=== PATIENT | female | born 1940 | race Caucasian/White ===

== ENCOUNTER 2016-09-28 13:01 | Observation (INO) | payer MEDICARE, OTHER ==
[~2016-09-28] VITALS: Ht 162.6 cm; Wt 66.9 kg
[2016-09-28] VITALS (10 sets, daily range): BP systolic 104–131; BP diastolic 52–67; PULSE 71–89; RESP 16–20; TEMP 97.7–98.7; O2SAT 96–98
[~2016-09-28 13:01] MED LIST: ASPI81TA82 PO; LACTCAP7 PO; METF500 PO; NEXI20CA PO; OCUTTAB PO; PRAV20TA67 PO
[2016-09-28] MEDS ORDERED: PRAD150C PO (14:30)
[2016-09-28] MEDS ORDERED: NEXI20CA PO (14:31)
[2016-09-28] MEDS ORDERED: PRAV10TA PO (14:31)
[2016-09-28] MEDS ORDERED: VITA100021 SL (14:33)
[2016-09-28] MEDS ORDERED: VITA400C2 PO (14:33)
[2016-09-28] MEDS ORDERED: LEVO.075 PO (14:33)
[2016-09-28] MEDS ORDERED: OCUVTAB PO (14:33)
--- NOTE | 2016-09-28 15:11 | PD ---
HPI Chief Complaint: Abdominal Pain Time Seen by Provider: 15:06 Travel History International Travel<30 days: No Contact w/Intl Traveler<30days: No Traveled to known affect area: No History of Present Illness HPI This patient complains of chest pain. Duration is 20 hours. Symptoms severity is moderate. Symptoms are nonexertional. They're not worsened with eating. Located in the low center sternum. She does have some belching sensation. She does have history of heartburn. She called the office of her stock parts inspector and she was advised to come here and get evaluated. She has no recent stress testing. She has history of A. fib and had ablation and takes Pradaxa. No alleviating factors. PFSH Past Medical History Atrial Fibrillation: Yes Cancer: No Cardiovascular Problems: Yes (Heart Ablation) High Cholesterol: Yes Chemotherapy: No Chest Pain: No Cerebrovascular Accident: No Diabetes: Yes (Type II) Patient Takes Glucophage: No Diminished Hearing: Yes Endocrine: No Gastrointestinal Disorders: Yes GERD: Yes Glaucoma: No Genitourinary: Yes (BLOCKAGE IN [place] (UNSURE WHERE)) Hepatitis: No Hiatal Hernia: No Hypertension: Yes Immune Disorder: No Kidney Stones: Yes Medical other: Yes (FATTY LIVER) Musculoskeletal: No Neurologic: No Psychiatric: No Respiratory: No Integumentary: No Immunizations Current: Yes (SHINGLES DONE) Thyroid Disease: Yes Tetanus Vaccination: < 5 Years Influenza Vaccination: Yes ?: Not Menopausal: Yes Past Surgical History Abdominal Surgery: Yes (RECTAL SURGERY) AICD: No Cardiac Surgery: Yes (HEART ABLATION) Cholecystectomy: Yes Ear Surgery: No Endocrine Surgery: No Eye Surgery: No Genitourinary Surgery: No Gynecologic Surgery: Yes (HYSTERECTOMY) Hysterectomy: Yes Joint Replacement: No Oral Surgery: No Pacemaker: No Thoracic Surgery: No Other Surgery: Yes (BREAST AUGMENTATION) Social History Alcohol Use: No Tobacco Use: No Substance Use: No Allergies-Medications (Allergen,Severity, Reaction): Coded Allergies: Codeine (Verified Allergy, Severe, Vertigo, 09/28/16) Sulfa (Verified Allergy, Severe, Vertigo, 09/28/16) Reported Meds & Prescriptions Reported Meds & Active Scripts Active Reported Ocuvite (Multiple Vitamins W/ Minerals) 1 Tab 1 Tab PO DAILY Vitamin B-12 (Cyanocobalamin) 1,000 Mcg Subl 1,000 Mcg SL DAILY Vitamin E 400 Unit Cap 400 Units PO DAILY Synthroid (Levothyroxine Sodium) 75 Mcg Tab 75 Mcg PO DAILY Pravastatin 10 Mg Tab 10 Mg PO DAILY Nexium (Esomeprazole DR) 20 Mg Capdr 20 Mg PO DAILY Pradaxa (Dabigatran) 150 Mg Cap 150 Mg PO BID Review of Systems General / Constitutional: No: Fever Eyes: No: Visual changes HENT: No: Headaches Cardiovascular: Positive: Chest Pain or Discomfort Respiratory: No: Shortness of Breath Gastrointestinal: No: Abdominal Pain Genitourinary: No: Dysuria Musculoskeletal: No: Pain Skin: No Rash Neurologic: No: Weakness Psychiatric: No: Depression Endocrine: No: Polydipsia Hematologic/Lymphatic: No: Easy Bruising Physical Exam Narrative GENERAL: Well-nourished, well-developed patient in no apparent distress. SKIN: Warm and dry. HEAD: Atraumatic. Normocephalic. EYES: Pupils equal and round. No scleral icterus. No injection or drainage. ENT: No nasal bleeding or discharge. Mucous membranes pink and moist. NECK: Trachea midline. No JVD. CARDIOVASCULAR: Regular rate and rhythm. No murmur appreciated. RESPIRATORY: No accessory muscle use. Clear to auscultation. Breath sounds equal bilaterally. GASTROINTESTINAL: Abdomen soft, non-tender, nondistended. Hepatic and splenic margins not palpable. MUSCULOSKELETAL: No obvious deformities. No clubbing. No cyanosis. No edema. NEUROLOGICAL: Awake and alert. No obvious cranial nerve deficits. Motor grossly within normal limits. Normal speech. PSYCHIATRIC: Appropriate mood and affect; insight and judgment normal. Data Data Last Documented VS Vital Signs Date Time Temp Pulse Resp B/P Pulse Ox O2 Delivery O2 Flow Rate FiO2 09/28/16 16:50 71 18 131/59 98 Room Air 09/28/16 13:15 97.7 Orders Electrocardiogram (09/28/16 13:20) Ckmb (Isoenzyme) Profile (09/28/16 15:06) Complete Blood Count With Diff (09/28/16 15:06) Comprehensive Metabolic Panel (09/28/16 15:06) Prothrombin Time / Inr (Pt) (09/28/16 15:06) Act Partial Throm Time (Ptt) (09/28/16 15:06) Troponin I (09/28/16 15:06) Lipase (09/28/16 15:06) Chest, Single Ap (09/28/16 15:06) Ecg Monitoring (09/28/16 15:06) Iv Access Insert/Monitor (09/28/16 15:06) Oximetry (09/28/16 15:06) Sodium Chloride 0.9% Flush (Ns Flush) (09/28/16 15:15) Admit Order (Ed Use Only) (09/28/16 16:52) Labs Laboratory Tests Test 09/28/16 09/28/16 15:35 16:15 White Blood Count 12.3 TH/MM3 Red Blood Count 4.49 MIL/MM3 Hemoglobin 14.1 GM/DL Hematocrit 42.8 % Mean Corpuscular Volume 95.1 FL Mean Corpuscular Hemoglobin 31.3 PG Mean Corpuscular Hemoglobin 32.9 % Concent Red Cell Distribution Width 12.6 % Platelet Count 233 TH/MM3 Mean Platelet Volume 9.1 FL Neutrophils (%) (Auto) 58.8 % Lymphocytes (%) (Auto) 27.5 % Monocytes (%) (Auto) 9.3 % Eosinophils (%) (Auto) 2.0 % Basophils (%) (Auto) 2.4 % Neutrophils # (Auto) 7.3 TH/MM3 Lymphocytes # (Auto) 3.4 TH/MM3 Monocytes # (Auto) 1.1 TH/MM3 Eosinophils # (Auto) 0.2 TH/MM3 Basophils # (Auto) 0.3 TH/MM3 CBC Comment DIFF FINAL Differential Comment Prothrombin Time 11.4 SEC Prothromb Time International 1.0 RATIO Ratio Activated Partial 29.0 SEC Thromboplast Time Sodium Level 143 MEQ/L Potassium Level 3.8 MEQ/L Chloride Level 108 MEQ/L Carbon Dioxide Level 26.5 MEQ/L Anion Gap 9 MEQ/L Blood Urea Nitrogen 15 MG/DL Creatinine 0.74 MG/DL Estimat Glomerular Filtration 77 ML/MIN Rate Random Glucose 90 MG/DL Calcium Level 8.6 MG/DL Total Bilirubin 0.3 MG/DL Aspartate Amino Transf 24 U/L (AST/SGOT) Alanine Aminotransferase 28 U/L (ALT/SGPT) Total Protein 7.9 GM/DL Albumin 3.4 GM/DL Lipase 389 U/L MDM Medical Decision Making Medical Screen Exam Complete: Yes Emergency Medical Condition: Yes Medical Record Reviewed: Yes Differential Diagnosis Differential diagnosis includes AL, angina, pericarditis, pleurisy, GERD, anxiety Narrative Course I have reviewed the patient's electronic medical record. IV placed I reviewed the EKG which shows sinus rhythm but no acute ST elevation. Possibly a Q wave in lead 3 I reviewed the chest x-ray which is normal Extended cardiac monitoring CBC is normal Metabolic profile is normal CK is pending Troponin is pending Coagulation studies are normal She takes blood thinners so I did not give her aspirin Lipase is pending LFTs are pending Plan is to place the patient in the chest pain center. She does have multiple risk factors including smoking and hyperlipidemia. Pain is atypical and may be GI in origin. Assuming cardiac enzymes are normal this will be the plan Diagnosis Primary Impression: Chest pain in adult Admitting Information Admitting Physician Requests: Observation Aren Quesada MD Sep 28, 2016 15:11
[2016-09-28] MEDS ORDERED: SODIUM CHLORIDE 0.9% FLUSH 5 ML FLUSH IVF PRN ×2 (15:15→18:15)
--- NOTE | 2016-09-28 15:25 | RADHPO ---
EXAM DATE/TIME: 09/28/2016 15:13 [facility] COMPARISON: No previous studies available for comparison. INDICATIONS : Chest pain. MEDICAL HISTORY : Hypertension. Hypercholesterolemia. Renal calculi. Thyroid disease, AFIB, Diabetes, COPD SURGICAL HISTORY : Cholecystectomy. Hysterectomy. Ablation, Rectal surgery, Breast augmentation ENCOUNTER: Initial ACUITY: 2 days PAIN SCORE: 7/10 LOCATION: Bilateral chest FINDINGS: A single view of the chest demonstrates the lungs to be symmetrically aerated without evidence of mas s, infiltrate or effusion. The cardiomediastinal contours are unremarkable. Osseous structures are intact. CONCLUSION: Normal examination. Calvin Black MD on September 28, 2016 at 15:23 Board Certified Radiologist. This report was verified electronically.
[2016-09-28 15:51] LABS: AUTOMATED NEUTROPHIL # 7.3 TH/MM3 (1.8-7.7); BASOPHIL # 0.3 TH/MM3 (0-0.2); BASOPHIL % 2.4 % (0.0-2.0); EOSINOPHIL # 0.2 TH/MM3 (0-0.4); HEMATOCRIT 42.8 % (35.0-46.0); LYMPH % 27.5 % (9.0-44.0); LYMPHOCYTE # 3.4 TH/MM3 (1.0-4.8); MEAN CELL VOLUME 95.1 FL (80.0-100.0); MEAN CORPUSCULAR HEMOGLOBIN 31.3 PG (27.0-34.0); MEAN CORPUSCULAR HGB CONC 32.9 % (32.0-36.0); MONO % 9.3 % (0.0-8.0); NEUT % 58.8 % (16.0-70.0); PLATELET COUNT 233 TH/MM3 (150-450); RED BLOOD COUNT 4.49 MIL/MM3 (4.00-5.30); RED CELL DISTRIBUTION WIDTH 12.6 % (11.6-17.2); WHITE BLOOD COUNT 12.3 TH/MM3 (4.0-11.0)
[2016-09-28 15:52] LABS: HEMO FLAGS DIFF FINAL
[2016-09-28 16:05] LABS: PROTHROMBIN TIME - PATIENT 11.4 SEC (9.8-11.6)
[2016-09-28 16:41] LABS: CHLORIDE 108 MEQ/L (98-107); POTASSIUM 3.8 MEQ/L (3.5-5.1); SODIUM (NA) 143 MEQ/L (136-145)
[2016-09-28 16:46] LABS: ANION GAP 9 MEQ/L (5-15); BICARBONATE 26.5 MEQ/L (21.0-32.0); BLOOD UREA NITROGEN 15 MG/DL (7-18)
[2016-09-28 16:49] LABS: ALT (GPT) 28 U/L (10-53); AST (GOT) 24 U/L (15-37); GLOMERULAR FILTRATION RATE 77 ML/MIN (>89)
[2016-09-28 16:51] LABS: TOTAL BILIRUBIN ADULT 0.3 MG/DL (0.2-1.0)
[2016-09-28 16:52] LABS: ALKALINE PHOSPHATASE 119 U/L (45-117)
[2016-09-28 16:58] LABS: CREATINE KINASE 71 U/L (26-192)
[2016-09-28] MEDS ORDERED: MORPHINE SULFATE 4 MG/ML INJ IV PRN (18:15)
[2016-09-28] MEDS ORDERED: ACETAMINOPHEN 325 MG TAB PO PRN (18:15)
[2016-09-28] MEDS ORDERED: ONDANSETRON HCL 4 MG/2 ML VIAL IV PRN (18:15)
[2016-09-28] MEDS ORDERED: NITROGLYCERIN 0.4 MG SL 25 TABS/BTL SL PRN (18:15)
[2016-09-28 19:57] LABS: CREATINE KINASE 65 U/L (26-192)
[2016-09-28] MEDS: SODIUM CHLORIDE 0.9% FLUSH 5 ML FLUSH IVF SCH (20:12)
[2016-09-28] MEDS: DABIGATRAN ETEXILATE 150 MG CAP PO SCH (20:12)
[2016-09-28] MEDS: PRAVASTATIN SOD 10 MG TAB PO SCH (20:16)
[2016-09-28] MEDS: VITAMIN E 400 UNIT CAP PO SCH (20:16)
[2016-09-28 22:38] LABS: CREATINE KINASE 64 U/L (26-192)
[2016-09-28] MEDS ORDERED: ALUMINUM/MAGNESIUM/SIMETH 30 ML CUP PO ONE (22:45)
[2016-09-29 01:36] VITALS: BP 109/63; PULSE 65; RESP 20; TEMP 97.3; O2SAT 98
[2016-09-29 04:00] VITALS: BP 101/67; PULSE 66; RESP 18; TEMP 96.9; O2SAT 97
[2016-09-29] MEDS ORDERED: LEVOTHYROXINE SODIUM 75 MCG TAB PO SCH (06:00)
[2016-09-29 07:12] LABS: AUTOMATED NEUTROPHIL # 3.9 TH/MM3 (1.8-7.7); BASOPHIL # 0.1 TH/MM3 (0-0.2); BASOPHIL % 0.8 % (0.0-2.0); EOSINOPHIL # 0.2 TH/MM3 (0-0.4); EOSINOPHIL % 2.9 % (0.0-4.0); HEMATOCRIT 36.1 % (35.0-46.0); HEMO FLAGS DIFF FINAL; LYMPH % 33.5 % (9.0-44.0); LYMPHOCYTE # 2.4 TH/MM3 (1.0-4.8); MEAN CELL VOLUME 93.9 FL (80.0-100.0); MEAN CORPUSCULAR HEMOGLOBIN 32.8 PG (27.0-34.0); MONO % 8.5 % (0.0-8.0); NEUT % 54.3 % (16.0-70.0); PLATELET COUNT 209 TH/MM3 (150-450); RED BLOOD COUNT 3.84 MIL/MM3 (4.00-5.30); RED CELL DISTRIBUTION WIDTH 11.9 % (11.6-17.2); WHITE BLOOD COUNT 7.2 TH/MM3 (4.0-11.0)
[2016-09-29 08:00] VITALS: BP 130/66; PULSE 69; RESP 20; TEMP 96.5; O2SAT 96
--- NOTE | 2016-09-29 08:12 | HHI.HP ---
cc: Vince Torres MD [facility] Physician Vince Torres MD Admission Diagnosis chest pain Diagnoses: (1) Atypical chest pain Diagnosis: Principal (2) GERD (gastroesophageal reflux disease) Diagnosis: Principal Chief Complaint: "severe indigestion and chest pain" Travel History International Travel<30 Days: No Contact w/Intl Traveler <30 Da: No Traveled to Known Affected Are: No History of Present Illness 76-year-old female with history of A. fib, status post ablation, hyperlipidemia, thyroid disease, GERD, fatty liver, pre-diabetes, and unknown autoimmune disease is admitted to chest pain center. Patient states she has had severe indigestion and chest pain. She states it started on around 6-7 PM after she ate pizza. She admits to a "burning discomfort" over the lower sternum with radiation to back. She states she has been belching which makes it better and she has also been having flatulence. She admits to regurgitation. She took Nexium without relief but states she received Maalox last night which helped some. She also received morphine last night which did not cause significant improvement. Pain has been constant since it started. She states the pain on arrival was a 9/10 but is improving and now is a 4/10. She denies any shortness of breath. She denies any numbness or tingling. Admits to runny nose related to allergies but denies any cold symptoms otherwise. Denies any fevers or chills. Denies any leg swelling. Denies any abdominal pain, nausea, vomiting, or diarrhea. Denies constipation but states she only had a small bowel movement and needs to have another one. She states she had dark brown stool earlier, but denies any true melena. Denies hematochezia. Patient sees GI Dr. Briggs and has an appointment on October 03. She had an EGD and colonoscopy which were normal 6 months ago. Patient sees motor express clerk Dr. Mcgowan. Last stress test 3-4 years ago, negative. She called her motor express clerk's office yesterday but Dr. Mcgowan was unavailable. Patient does not believe her pain is cardiac in nature. She denies any history of DVT or pulmonary embolus, recent hospitalization, recent surgeries in the past 3 months, estrogen use, or hemoptysis. Review of Systems Constitutional: DENIES: Fever, Chills, Dizziness Eyes: DENIES: Blurred vision Ears, nose, mouth, throat: COMPLAINS OF: Running Nose, DENIES: Throat pain, Ear Pain Respiratory: DENIES: Cough, Hemoptysis, Shortness of breath Cardiovascular: COMPLAINS OF: Chest pain, DENIES: Lower Extremity Edema Gastrointestinal: DENIES: Abdominal pain, Black stools, Bloody stools, Constipation, Diarrhea, Nausea, Vomiting Genitourinary: DENIES: Dysuria Musculoskeletal: COMPLAINS OF: Back pain Integumentary: DENIES: Rash Neurologic: DENIES: Headache, Localized weakness, Paresthesias Other GI: +regurgitation, belching, flatulence Past Family Social History Past Medical History A. fib Hyperlipidemia Pre-diabetic (sees endocrinology Dr. Delaney) GERD Fatty liver Thyroid disease Patient states she has a ligament which is pressing on an artery to the intestines. 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 Unknown autoimmune disease. Past Surgical History Cardiac ablation [address] Sánchez. Attempted anal sphincter repair Cholecystectomy Hysterectomy Breast augmentation Reported Medications Ocuvite (Multiple Vitamins W/ Minerals) 1 Tab 1 Tab PO DAILY Vitamin B-12 (Cyanocobalamin) 1,000 Mcg Subl 1,000 Mcg SL DAILY Vitamin E 400 Unit Cap 400 Units PO DAILY Synthroid (Levothyroxine Sodium) 75 Mcg Tab 75 Mcg PO DAILY Pravastatin 10 Mg Tab 10 Mg PO DAILY Nexium (Esomeprazole DR) 20 Mg Capdr 20 Mg PO DAILY Pradaxa (Dabigatran) 150 Mg Cap 150 Mg PO BID Allergies: Coded Allergies: Codeine (Verified Allergy, Severe, Vertigo, 09/28/16) Sulfa (Verified Allergy, Severe, Vertigo, 09/28/16) Family History Mother: at age 80 from CHF; diabetes. Father: of prostate cancer. Brother: of prostate cancer. Sister: CHF Sister: of diabetes, had a "bad heart" Brother: "Heart problems" Sister: [place] Niece: Heart problems Social History Patient states she is 100% . She lives at home with her . 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 Patient quit smoking cigarettes 36 years ago. Prior to this she smoked half pack per day but would smoke up to 2 packs per day when she was drinking. Denies any history of illicit drug use. Physical Exam Vital Signs Vital Signs Date Time Temp Pulse Resp B/P Pulse Ox O2 Delivery O2 Flow Rate FiO2 09/29/16 04:00 96.9 66 18 101/67 97 09/29/16 01:36 97.3 65 20 109/63 98 09/28/16 23:00 75 09/28/16 20:37 97 21 09/28/16 20:01 97.7 81 16 120/60 96 09/28/16 20:00 75 09/28/16 18:30 98.7 82 20 117/63 98 09/28/16 17:46 75 18 124/62 97 09/28/16 16:50 71 18 131/59 98 Room Air 09/28/16 15:43 98 Room Air 09/28/16 14:23 80 18 104/52 97 Room Air 09/28/16 13:15 97.7 89 16 125/67 98 Physical Exam GENERAL: This is a pleasant well-nourished, well-developed patient, in no apparent distress. SKIN: No rashes, ecchymoses or lesions. Warm and dry. HEAD: Atraumatic. Normocephalic. EYES: No scleral icterus. No injection or drainage. ENT: Nonerythematous pharynx. Uvula midline. Airway patent. Tongue has an even white coat with yellow in the center; film cannot be scraped off with tongue blade. No bleeding. CHEST: No reproducible tenderness over the sternum. CARDIOVASCULAR: Regular rate and rhythm without murmurs, gallops, or rubs. RESPIRATORY: Clear to auscultation. Breath sounds equal bilaterally. No wheezes , rales, or rhonchi. GASTROINTESTINAL: Belching. Normoactive bowel sounds in all 4 quadrants. Tender over epigastric region. Abdomen soft, nondistended. BACK/MUSCULOSKELETAL: No tenderness over the upper or lower back. No lower extremity edema bilaterally. NEUROLOGICAL: Awake and alert. Motor grossly within normal limits. Five out of 5 muscle strength in bilateral arms and legs. Normal speech. Laboratory Laboratory Tests Test 09/28/16 09/28/16 09/28/16 09/28/16 15:35 16:15 19:19 22:09 White Blood Count 12.3 Red Blood Count 4.49 Hemoglobin 14.1 Hematocrit 42.8 Mean Corpuscular Volume 95.1 Mean Corpuscular Hemoglobin 31.3 Mean Corpuscular Hemoglobin 32.9 Concent Red Cell Distribution Width 12.6 Platelet Count 233 Mean Platelet Volume 9.1 Neutrophils (%) (Auto) 58.8 Lymphocytes (%) (Auto) 27.5 Monocytes (%) (Auto) 9.3 Eosinophils (%) (Auto) 2.0 Basophils (%) (Auto) 2.4 Neutrophils # (Auto) 7.3 Lymphocytes # (Auto) 3.4 Monocytes # (Auto) 1.1 Eosinophils # (Auto) 0.2 Basophils # (Auto) 0.3 CBC Comment DIFF FINAL Differential Comment Prothrombin Time 11.4 Prothromb Time International 1.0 Ratio Activated Partial 29.0 Thromboplast Time Sodium Level 143 Potassium Level 3.8 Chloride Level 108 Carbon Dioxide Level 26.5 Anion Gap 9 Blood Urea Nitrogen 15 Creatinine 0.74 Estimat Glomerular Filtration 77 Rate Random Glucose 90 Calcium Level 8.6 Total Bilirubin 0.3 Aspartate Amino Transf 24 (AST/SGOT) Alanine Aminotransferase 28 (ALT/SGPT) Alkaline Phosphatase 119 Total Creatine Kinase 71 65 64 Troponin I LESS THAN 0.02 LESS THAN 0.02 LESS THAN 0.02 Total Protein 7.9 Albumin 3.4 Lipase 389 Test 09/29/16 06:21 White Blood Count 7.2 Red Blood Count 3.84 Hemoglobin 12.6 Hematocrit 36.1 Mean Corpuscular Volume 93.9 Mean Corpuscular Hemoglobin 32.8 Mean Corpuscular Hemoglobin 35.0 Concent Red Cell Distribution Width 11.9 Platelet Count 209 Mean Platelet Volume 8.9 Neutrophils (%) (Auto) 54.3 Lymphocytes (%) (Auto) 33.5 Monocytes (%) (Auto) 8.5 Eosinophils (%) (Auto) 2.9 Basophils (%) (Auto) 0.8 Neutrophils # (Auto) 3.9 Lymphocytes # (Auto) 2.4 Monocytes # (Auto) 0.6 Eosinophils # (Auto) 0.2 Basophils # (Auto) 0.1 CBC Comment DIFF FINAL Differential Comment Result Diagram: 09/29/16 0621 09/28/16 1615 Imaging Last Impressions Chest X-Ray 09/28/16 1506 Signed Impressions: Service Date/Time: Wednesday, September 28, 2016 15:13 - CONCLUSION: Normal examination. Calvin Black MD Assessment and Plan Assessment and Plan 76-year-old female with: Atypical chest pain/GERD: Constant lower retrosternal burning radiating to back , started after eating pizza 2 days ago. She also has significant belching and flatulence. Patient has history of GERD. Maalox provided some relief last night. Patient has epigastric tenderness on exam, but lipase normal and LFTs are unremarkable. -EKGs personally interpreted. EKG #1 with normal sinus rhythm; Q waves and T-wave inversion in lead 3, small q waves in aVF, but no evidence of acute ischemia. EKG #2 with normal sinus rhythm; Q waves and T-wave inversion in lead 3, small q waves in aVF; T waves are flatter in aVF than prior EKG, but lead 2 remains normal; possible T-wave inversion in V3, but V4 remains normal. EKG #3 with normal sinus rhythm; Q waves and T-wave inversion in lead 3; T waves are clearly upright in aVF and V3. No evidence of acute ischemia. EKG from 09/28/16 reviewed with normal sinus rhythm. Same Q wave and T-wave inversion is present in lead 3. -Troponin 3 less than 0.02. -Chest x-ray personally interpreted without evidence of acute disease. -Mild leukocytosis of 12.3 likely stress reaction. Resolved, 7.2 this morning. -Patient was given Maalox last night with some alleviation. Order another dose of Maalox and 20 mg of Pepcid now. -Pain is likely GI related as she continues to belch on exam and the pain is classic for GERD, but due to age and other risk factors discussed with Dr. Cornejo who would like to proceed with nuclear stress test. -Patient advised on proper way to elevate head of bed to avoid GERD symptoms at night. She is informed of foods which aggravate GERD. She is informed that she can take Pepcid Complete at home to alleviate acute symptoms in addition to her schedule Nexium. Patient does have a white tongue on exam, but this is likely caused from GERD rather than true thrush. Chronic medical problems include hyperlipidemia, thyroid disease, A. fib: Continue home medications including Pradaxa. Myocardial perfusion scan normal. EF greater than 70%. Patient's pain is improved from this morning rating it a 3/10 currently. Discharge disposition: Home in fair condition. Diet: Heart healthy, GERD, diabetic. Activity: Regular Medications: Resume home medications including PPI. Prescription for Carafate. Follow-up: Dr. Briggs Discussed Condition With patient Attending Statement The exam, history, and the medical decision-making described in the above note were completed with the assistance of the mid-level provider. I reviewed and agree with the findings presented. I attest that I had a [id number] encounter with the patient on the same day, and personally performed and documented my assessment and findings in the medical record. Patient seen and evaluated today in follow-up for atypical chest discomfort which is likely GI related. Patient however has atypical symptoms and will benefit from nuclear stress test to rule out cardiac disease. If stress is negative likely discharge home follow-up with GI. Continue with proton pump inhibitor and add Carafate D/W patient and spouse Livia Yanez Sep 29, 2016 08:12 Yocasta Cornejo MD Sep 29, 2016 10:36
[2016-09-29] MEDS ORDERED: FAMOTIDINE 20 MG TAB PO ONE (08:30)
[2016-09-29] MEDS ORDERED: PANTOPRAZOLE SOD 20 MG DELAYED RELEASE TAB PO SCH ×2 (09:00)
[2016-09-29] MEDS ORDERED: CYANOCOBALAMIN 1,000 MCG TAB PO SCH (09:00)
[2016-09-29] MEDS ORDERED: ALUMINUM/MAGNESIUM/SIMETH 30 ML CUP PO ONE (09:00)
[2016-09-29] MEDS ORDERED: MULTIVITAMIN-OPHTHALMIC 1 TAB PO SCH (09:00)
[2016-09-29] MEDS: VITAMIN E 400 UNIT CAP PO SCH (10:24)
[2016-09-29] MEDS: DABIGATRAN ETEXILATE 150 MG CAP PO SCH (10:24)
[2016-09-29] MEDS: SODIUM CHLORIDE 0.9% FLUSH 5 ML FLUSH IVF SCH (10:25)
[2016-09-29] MEDS: PRAVASTATIN SOD 10 MG TAB PO SCH (10:25)
[2016-09-29] MEDS ORDERED: CARA1TAB6 PO (10:36)
[2016-09-29 12:00] VITALS: BP 122/58; PULSE 75; RESP 20; TEMP 96.9; O2SAT 97
--- NOTE | 2016-09-29 12:27 | EKG ---
Date Performed: 09/28/2016 Time Performed: 19:22:56 PTAGE: 76 years EKG: Sinus rhythm . Inferior and anterior T wave changes are nonspecific Borderline ECG PREVIOUS TRACING : 09/28/2016 13.20 Compared to prior tracing no significant change DOCTOR: Omid Islas Interpretating Date/Time 09/29/2016 12:24:45
--- NOTE | 2016-09-29 12:47 | EKG ---
Date Performed: 09/28/2016 Time Performed: 22:11:42 PTAGE: 76 years EKG: Sinus rhythm Compared to previous tracing non specific t wave changed are now present Normal ECG PREVIOUS TRACING : 09/28/2016 19.22 DOCTOR: Omid Islas Interpretating Date/Time 09/29/2016 12:46:55
--- NOTE | 2016-09-29 12:47 | EKG ---
Date Performed: 09/28/2016 Time Performed: 13:20:52 PTAGE: 76 years EKG: Sinus rhythm Compared to prior tracing no significant change Abnormal ECG PREVIOUS TRACING : 06/20/2012 05.04 DOCTOR: Omid Islas Interpretating Date/Time 09/29/2016 12:46:04
[2016-09-29] MEDS ORDERED: REGADENOSON INJ 0.4 MG/5 ML SYR IV ONE (13:13)
--- NOTE | 2016-09-29 14:33 | RADHPO ---
EXAM DATE/TIME: 09/29/2016 13:38 [facility] COMPARISON: No previous studies available for comparison. INDICATIONS : Substernal chest pain with radiation to the back. Angina. Atrial fibrillation. DOSE: 25.2 mCi Tc99m Myoview at stress. 8.4 mCi Tc99m Myoview at rest. 0.4 mg Lexiscan STRESS SYMPTOMS: Dyspnea, head and neck pressure. EJECTION FRACTION: > 70% MEDICAL HISTORY : Hypercholesterolemia. Chronic obstructive pulmonary disease. Gastroesophageal reflux disease. Hyperte nsion. SURGICAL HISTORY : Cholecystectomy. Hysterectomy. Heart ablation. ENCOUNTER: Initial ACUITY: 2 days PAIN SCALE: 9/10 LOCATION: Substernal chest TECHNIQUE: The patient underwent pharmacologic stress with infusion of prescribed dose. Continuous ECG tracing was monitored during stress. Gated SPECT imaging was performed after stress and conventional SPECT i maging was performed at rest. The examination was performed on a SPECT/CT scanner, both attenuation and non-corrected datasets were reviewed. FINDINGS: DISTRIBUTION: The maximum perfused segment at stress is in the lateral wall. PERFUSION STUDY: The pattern of perfusion at stress is within normal limits. GATED STUDY: There is intact wall motion and thickening without hypokinetic or dyskinetic segments. CONCLUSION: Unremarkable myocardial perfusion study. RISK CATEGORY: Low Collin Browning MD on September 29, 2016 at 14:31 Board Certified Radiologist. This report was verified electronically.
--- NOTE | 2016-09-29 15:12 | HHI.DCPOC ---
Discharge Care Plan Diagnosis: (1) Atypical chest pain (2) GERD (gastroesophageal reflux disease) Your Health Problems Are: Chest Pain Goals to Promote Your Health * To prevent worsening of your condition and complications * To maintain your health at the optimal level Directions to Meet Your Goals Take your medications as prescribed Follow your dietary instruction Follow activity as directed Keep your appointments as scheduled Take your immunizations and boosters as scheduled If your symptoms worsen call your PCP, if no PCP go to Urgent Care Center or Emergency Room Smoking is Dangerous to Your Health. Avoid second hand smoke Call the 24-hour hour crisis hotline for domestic abuse at Livia Yanez Sep 29, 2016 15:12
[2016-09-29 15:53] VITALS: PULSE 80
--- NOTE | 2016-09-29 16:33 | TR ---
Date Performed: 09/29/2016 Time Performed: 13:42:41 DOCTOR: Juan Carlos Arias DRUG LIST: CLINICAL HISTORY: REASON FOR TEST: Chest pain. REASON FOR ENDING: OBSERVATION: CONCLUSION: Lexiscan stress test was performed under standard four minute protocol. Radionuclide was injected one minute prior to ending the test. Developed dyspnea, pressure in the head and tightn ess in the neck. No electrocardiographic abnormalities were present to suggest ischemia. Recovery was quick and uneventful with resolution of symptoms. Nuclear imaging and interpretation are pending. COMMENTS:
== END 2016-09-29 16:26 | disposition home or self-care (01) ==
LOC: PHED 13:01 → PHEDA 16:53 → PH3A 18:05
PROVIDERS: ADMIT Hospitalist; ATTEND Hospitalist
DX: R07.89 Other chest pain (principal); K21.9 Gastro-esophageal reflux disease without esophagitis; I48.91 Unspecified atrial fibrillation; I10 Essential (primary) hypertension; F43.9 Reaction to severe stress, unspecified; D72.829 Elevated white blood cell count, unspecified; E78.5 Hyperlipidemia, unspecified; E11.9 Type 2 diabetes mellitus without complications; E78.00 Pure hypercholesterolemia, unspecified; K76.0 Fatty (change of) liver, not elsewhere classified; Z87.891 Personal history of nicotine dependence; Z79.01 Long term (current) use of anticoagulants
CPT/HCPCS: 71010; 78452; 80053; 82550; 83690; 84484; 85025; 85610; 85730; 93005; 93017; 99285; A9502; G0378; J2270; J2785

== ENCOUNTER 2017-03-10 14:02 | Emergency (ER) | payer OTHER, MEDICARE ==
[~2017-03-10] VITALS: Ht 172.7 cm; Wt 60.0 kg
[~2017-03-10 14:02] MED LIST changes: -ASPI81TA82 PO; +CARA1TAB6 PO; -LACTCAP7 PO; +LEVO.075 PO; -METF500 PO; -OCUTTAB PO; +OCUVTAB PO; +PRAD150C PO; +PRAV10TA PO; -PRAV20TA67 PO; +VITA100021 SL; +VITA400C2 PO
[2017-03-10 14:20] VITALS: BP 148/72; PULSE 110; RESP 18; TEMP 98; O2SAT 100
[2017-03-10] MEDS ORDERED: SODIUM CHLOR 0.9% 1000 ML INJ 1,000 ML IV SCH (14:21)
[2017-03-10] MEDS ORDERED: VITA200C3 PO (14:22)
[2017-03-10] MEDS ORDERED: METOCLOPRAMIDE HCL 10 MG/2 ML VIAL IV PUSH ONE (14:30)
[2017-03-10] MEDS ORDERED: MECLIZINE HCL 25 MG TAB PO ONE (14:30)
[2017-03-10] MEDS ORDERED: SODIUM CHLORIDE 0.9% FLUSH 10 ML FLUSH IVF PRN (14:30)
[2017-03-10] MEDS ORDERED: diphenhydrAMINE HCL 50 MG/ML VIAL IM ONE (14:30)
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
[2017-03-10 15:09] LABS: AUTOMATED NEUTROPHIL # 3.2 TH/MM3 (1.8-7.7); BASOPHIL # 0.1 TH/MM3 (0-0.2); BASOPHIL % 0.9 % (0.0-2.0); EOSINOPHIL # 0.2 TH/MM3 (0-0.4); EOSINOPHIL % 2.4 % (0.0-4.0); HEMATOCRIT 39.8 % (35.0-46.0); HEMO FLAGS DIFF FINAL; LYMPH % 40.5 % (9.0-44.0); LYMPHOCYTE # 2.6 TH/MM3 (1.0-4.8); MEAN CELL VOLUME 94.6 FL (80.0-100.0); MEAN CORPUSCULAR HEMOGLOBIN 32.5 PG (27.0-34.0); MEAN CORPUSCULAR HGB CONC 34.4 % (32.0-36.0); MONO % 6.9 % (0.0-8.0); NEUT % 49.3 % (16.0-70.0); PLATELET COUNT 270 TH/MM3 (150-450); RED BLOOD COUNT 4.21 MIL/MM3 (4.00-5.30); RED CELL DISTRIBUTION WIDTH 12.3 % (11.6-17.2); WHITE BLOOD COUNT 6.4 TH/MM3 (4.0-11.0)
[2017-03-10 15:19] LABS: BACTERIA, URINE RARE /hpf; BLOOD, URINE NEG (NEG); COMMENT (UR) CULT NOT INDICATED; CULTURE IF INDICATED CULT NOT INDICATED; GLUCOSE,URINE NEG (NEG); KETONE, URINE NEG (NEG); MUCUS URINE FEW /lpf (OCC); NITRITE,URINE NEG (NEG); SQUAMOUS EPITHELIAL CELL URINE <1 /hpf (0-5); URINE COLOR LIGHT-YELLOW (YELLW/STRAW)
[2017-03-10 15:21] LABS: APTT (PATIENT) 23.3 SEC (24.3-30.1); PROTHROMBIN TIME - PATIENT 11.4 SEC (9.8-11.6)
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
[2017-03-10 15:44] LABS: BICARBONATE 25.3 MEQ/L (21.0-32.0); POTASSIUM 4.5 MEQ/L (3.5-5.1)
[2017-03-10] MEDS ORDERED: KETOROLAC TROMETHAMINE 30 MG/ML (IVP) VIAL IV PUSH ONE (17:45)
== END 2017-03-10 18:44 | disposition home or self-care (01) ==
LOC: NEPC 14:02
DX: S09.90XA Unspecified injury of head, initial encounter (principal); S13.4XXA Sprain of ligaments of cervical spine, initial encounter; R42 Dizziness and giddiness; I48.91 Unspecified atrial fibrillation; I10 Essential (primary) hypertension; E78.5 Hyperlipidemia, unspecified; E03.9 Hypothyroidism, unspecified; K21.9 Gastro-esophageal reflux disease without esophagitis; V43.62XA Car passenger injured in collision with other type car in traffic accident, initial encounter
CPT/HCPCS: 70450; 71010; 72125; 73030; 80048; 81001; 85025; 85610; 85730; 96361; 96372; 96374; 99285; J1200; J2765; J7030